=== PATIENT | female | born 1975 | race Caucasian/White ===

== ENCOUNTER 2016-10-05 19:33 | Emergency (ER) | payer MEDICAID ==
[2016-10-05] MEDS ORDERED: BENADRYL PO ONE ×2 (19:39→19:50)
[2016-10-05] MEDS ORDERED: PEPCID ONE (19:39)
[2016-10-05] MEDS ORDERED: PEPCID PO ONE (19:50)
[2016-10-05 19:58] VITALS: BP 132/82
--- NOTE | 2016-10-05 20:28 | Emergency Department Report ---
HPI - General Chief Complaint: Allergic Reaction Time Seen by Provider: 10/05/16 20:20 ED Past Medical Hx - Past Medical History Previous Medical History?: Yes Hx Hypertension: No Hx CVA: No Hx Heart Attack/AMI: No Hx Congestive Heart Failure: No Hx Diabetes: No Hx Deep Vein Thrombosis: No Hx Pulmonary Embolism: No Hx GERD: Yes Hx Liver Disease: No Hx Renal Disease: No Hx of Cancer: No Hx Sickle Cell Disease: No Hx Headaches / Migraines: No Hx Seizures: No Hx Kidney Stones: No Hx Psychiatric Treatment: No Hx Asthma: No Hx COPD: No Hx Tuberculosis: No Hx Dementia: No Hx HIV: No Additional medical history: Mass on lungs - Surgical History Past Surgical History?: Yes Hx Coronary Stent: No Hx Open Heart Surgery: No Hx Pacemaker: No Hx Internal Defibrillator: No Hx Cholecystectomy: Yes Hx Appendectomy: No Hx Breast Surgery: No Additional Surgical History: abdominal reconstruction, hernia repair x4 - Social History Smoking Status: Former Smoker Substance Use Type: None - Medications Home Medications: Home Medications Medication Instructions Recorded Confirmed Last Taken Type Oxycodone HCl/Acetaminophen 1 each PO Q6HR PRN #10 tablet 04/04/15 Unknown Rx [Percocet 2.5/325 mg] Pantoprazole [Protonix TAB] 40 mg PO BID #60 tablet 04/04/15 Unknown Rx ED Review of Systems ROS: Stated complaint: ALLERGIC REACTION TO SEAFOOD Other details as noted in HPI Physical Exam - Physical Exam Vital Signs: Vital Signs 10/05/16 10/05/16 10/05/16 19:37 19:47 19:58 Temperature 98.6 F Pulse Rate 86 86 Respiratory 15 18 18 Rate Blood Pressure 132/82 Blood Pressure 132/82 [Right] O2 Sat by Pulse 99 100 100 Oximetry ED Course Vital Signs 10/05/16 10/05/16 10/05/16 19:37 19:47 19:58 Temperature 98.6 F Pulse Rate 86 86 Respiratory 15 18 18 Rate Blood Pressure 132/82 Blood Pressure 132/82 [Right] O2 Sat by Pulse 99 100 100 Oximetry Critical care attestation.: If time is entered above; I have spent that time in minutes in the direct care of this critically ill patient, excluding procedure time. ED Disposition Condition: Stable Referrals: PRIMARY CARE, [Primary Care Provider] - 3-5 Days
--- NOTE | 2016-10-05 20:28 | Emergency Department Report ---
ED Allergic Reaction HPI - General Chief complaint: Allergic Reaction Stated complaint: ALLERGIC REACTION TO SEAFOOD Time Seen by Provider: 10/05/16 20:20 Source: patient Mode of arrival: Ambulatory Limitations: No Limitations - History of Present Illness Initial Comments: This is a 41-year-old female. She is previously unknown to me. She follows at the [facility]. She reports that she is not . She reports that she has a known seafood and shrimp allergy. She presents to the ER with her typical constellation of symptoms secondary to seafood allergy. She reports that she ate rice at approximately 5:00 PM, and then developed her typical symptoms, including right upper extremity itching and rash, and rash on her left buttock. There is no headache, neck pain, chest pain, abdominal pain, or shortness of breath. There is no stridor or dysphonia. MD Complaint: allergic reaction, hives -: Gradual, hour(s) Exposure: food Symptoms: rash, itching Severity: mild Treatment Prior to Arrival: none - Related Data Previous Rx's Medication Instructions Recorded Last Taken Type Oxycodone HCl/Acetaminophen 1 each PO Q6HR PRN #10 tablet 04/04/15 Unknown Rx [Percocet 2.5/325 mg] Pantoprazole [Protonix TAB] 40 mg PO BID #60 tablet 04/04/15 Unknown Rx EPINEPHrine [Epipen 2-Heath] 0.3 mg IM DAILY PRN #2 ml 10/05/16 Unknown Rx Famotidine [Pepcid] 20 mg PO BID #10 tablet 10/05/16 Unknown Rx diphenhydrAMINE [Benadryl] 50 mg PO Q8HR PRN #20 capsule 10/05/16 Unknown Rx predniSONE [Deltasone] 40 mg PO QDAY #8 tab 10/05/16 Unknown Rx Allergies Allergy/AdvReac Type Severity Reaction Status Date / Time latex Allergy Unknown Verified 04/03/15 22:46 ED Review of Systems ROS: Stated complaint: ALLERGIC REACTION TO SEAFOOD Other details as noted in HPI Constitutional: denies: fever Eyes: denies: eye discharge ENT: denies: throat pain, epistaxis, congestion Respiratory: denies: cough Cardiovascular: denies: chest pain Gastrointestinal: denies: abdominal pain Genitourinary: as per HPI Musculoskeletal: as per HPI Skin: rash, lesions Neurological: denies: weakness Psychiatric: as per HPI ED Past Medical Hx - Past Medical History Previous Medical History?: Yes Hx Hypertension: No Hx CVA: No Hx Heart Attack/AMI: No Hx Congestive Heart Failure: No Hx Diabetes: No Hx Deep Vein Thrombosis: No Hx Pulmonary Embolism: No Hx GERD: Yes Hx Liver Disease: No Hx Renal Disease: No Hx of Cancer: No Hx Sickle Cell Disease: No Hx Headaches / Migraines: No Hx Seizures: No Hx Kidney Stones: No Hx Psychiatric Treatment: No Hx Asthma: No Hx COPD: No Hx Tuberculosis: No Hx Dementia: No Hx HIV: No Additional medical history: Mass on lungs - Surgical History Past Surgical History?: Yes Hx Coronary Stent: No Hx Open Heart Surgery: No Hx Pacemaker: No Hx Internal Defibrillator: No Hx Cholecystectomy: Yes Hx Appendectomy: No Hx Breast Surgery: No Additional Surgical History: abdominal reconstruction, hernia repair x4 - Social History Smoking Status: Former Smoker Substance Use Type: None - Medications Home Medications: Home Medications Medication Instructions Recorded Confirmed Last Taken Type Oxycodone HCl/Acetaminophen 1 each PO Q6HR PRN #10 tablet 04/04/15 Unknown Rx [Percocet 2.5/325 mg] Pantoprazole [Protonix TAB] 40 mg PO BID #60 tablet 04/04/15 Unknown Rx EPINEPHrine [Epipen 2-Heath] 0.3 mg IM DAILY PRN #2 ml 10/05/16 Unknown Rx Famotidine [Pepcid] 20 mg PO BID #10 tablet 10/05/16 Unknown Rx diphenhydrAMINE [Benadryl] 50 mg PO Q8HR PRN #20 capsule 10/05/16 Unknown Rx predniSONE [Deltasone] 40 mg PO QDAY #8 tab 10/05/16 Unknown Rx ED Physical Exam - General Limitations: No Limitations General appearance: alert, in no apparent distress - Head Head exam: Present: atraumatic, normocephalic - Eye Eye exam: Present: normal appearance, EOMI. Absent: nystagmus - ENT ENT exam: Present: normal exam, normal orophraynx, mucous membranes moist, normal external ear exam, other (the patient is speaking in full sentences. There is no stridor or dysphonia.) - Neck Neck exam: Present: normal inspection, full ROM. Absent: tenderness, meningismus - Respiratory Respiratory exam: Present: normal lung sounds bilaterally. Absent: respiratory distress, wheezes, rales, rhonchi, stridor, chest wall tenderness, accessory muscle use, decreased breath sounds, prolonged expiratory - Cardiovascular Cardiovascular Exam: Present: regular rate, normal rhythm, normal heart sounds. Absent: bradycardia, tachycardia, irregular rhythm, systolic murmur, diastolic murmur, rubs, gallop - GI/Abdominal GI/Abdominal exam: Present: soft, normal bowel sounds. Absent: distended, tenderness, guarding, rebound, rigid, pulsatile mass - Extremities Exam Extremities exam: Present: full ROM, normal capillary refill, other (there is an urticarial rash noted on the right upper extremity and left gluteal cheek. During the gluteal examination, I am escorted by nurse Carey Geiger.). Absent: tenderness, pedal edema, joint swelling, calf tenderness - Back Exam Back exam: Present: normal inspection - Neurological Exam Neurological exam: Present: alert, oriented X3, normal gait, other (Extraocular movements intact. Tongue midline. No facial droop. Facial sensation intact to light touch in the V1, V2, V3 distribution bilaterally. 5 and 5 strength in 4 extremities.. Sensation is intact to light touch in 4 extremities.). Absent : motor sensory deficit - Psychiatric Psychiatric exam: Present: normal affect, normal mood - Skin Skin exam: Present: warm, rash, erythema, urticaria ED Course Vital Signs 10/05/16 10/05/16 10/05/16 19:37 19:47 19:58 Temperature 98.6 F Pulse Rate 86 86 Respiratory 15 18 18 Rate Blood Pressure 132/82 Blood Pressure 132/82 [Right] O2 Sat by Pulse 99 100 100 Oximetry - Reevaluation(s) Reevaluation #1: 10/05/16 22:18 patient is reassessed by me multiple times in the department. She is resting comfortably. No airway distress. The patient will be discharged at this time. ED Medical Decision Making - Lab Data Vital Signs 10/05/16 10/05/16 10/05/16 19:37 19:47 19:58 Temperature 98.6 F Pulse Rate 86 86 Respiratory 15 18 18 Rate Blood Pressure 132/82 Blood Pressure 132/82 [Right] O2 Sat by Pulse 99 100 100 Oximetry - Medical Decision Making Differential diagnosis: Urticaria, food allergy, mild allergic reaction Assessment and plan: 41-year-old female with mild allergic reaction. She is afebrile with reassuring vital signs, with no stridor or dysphonia or upper airway symptoms. She is treated with Pepcid, Benadryl and steroids. She is observed in the ER for a few hours. She did not experience any airway decompensation. She will be discharged with the same medications, epinephrine pen, and she is instructed to avoid exposure and consumption of seafood. Critical care attestation.: If time is entered above; I have spent that time in minutes in the direct care of this critically ill patient, excluding procedure time. ED Disposition Clinical Impression: Seafood allergy Disposition: [id number] TO HOME OR SELFCARE Is pt being admited?: No Does the pt Need Aspirin: No Condition: Stable Instructions: Urticaria (ED) Additional Instructions: Take the medications as directed. Avoid consumption of seafood and shellfish. Follow up with your primary care physician within the next week. Do not use the epinephrine pen unless he developed inability to speak, inability to breathe , and inability to talk. If he develops any of those symptoms, take the epinephrine pen, and contact 911 and return to the ER right away. Prescriptions: diphenhydrAMINE [Benadryl] 50 mg PO Q8HR PRN #20 capsule PRN Reason: Allergic Reaction EPINEPHrine [Epipen 2-Heath] 0.3 mg IM DAILY PRN #2 ml PRN Reason: Allergic Reaction Famotidine [Pepcid] 20 mg PO BID #10 tablet predniSONE [Deltasone] 40 mg PO QDAY #8 tab Referrals: PRIMARY MD OK [Primary Care Provider] - 3-5 Days MARZENA INGRAM MD [Staff Physician] - 3-5 Days
[2016-10-05] MEDS ORDERED: APRESOLINE ONE ×2 (21:08)
== END 2016-10-05 22:30 | disposition home or self-care (01) ==
LOC: ED 19:33
DX: T78.1XXA Other adverse food reactions, not elsewhere classified, initial encounter (principal); X58.XXXA Exposure to other specified factors, initial encounter; K21.9 Gastro-esophageal reflux disease without esophagitis
CPT/HCPCS: 96374; 99283; J2930

== ENCOUNTER 2016-11-11 19:18 | Emergency (ER) | payer MEDICAID ==
--- NOTE | 2016-11-11 19:43 | Emergency Department Report ---
HPI - General Chief Complaint: Allergic Reaction Time Seen by Provider: 11/11/16 19:43 - HPI HPI: Patient here reports that she ate [employer] chicken but think that they used all of that they used to tucker fish and shrimp in the Wednesday chicken N and 45 minutes after eating and she has hives and itching this was at 6 PM. She states she used her EpiPen at 6:30 PM because she is allergic to shellfish. She states that she has hives and itching. Denies any shortness of breath or chest pain. Denies any soreness tongue or difficulty swallowing. She has had similar incident in the past. She denies any pain. Denies any cough, stridor or wheezing. ED Past Medical Hx - Past Medical History Previous Medical History?: Yes Hx Hypertension: No Hx CVA: No Hx Heart Attack/AMI: No Hx Congestive Heart Failure: No Hx Diabetes: No Hx Deep Vein Thrombosis: No Hx Pulmonary Embolism: No Hx GERD: Yes Hx Liver Disease: No Hx Renal Disease: No Hx Sickle Cell Disease: No Hx Headaches / Migraines: No Hx Seizures: No Hx Kidney Stones: No Hx Psychiatric Treatment: No Hx Asthma: No Hx COPD: No Hx Tuberculosis: No Hx Dementia: No Hx HIV: No Additional medical history: Mass on lungs - Surgical History Past Surgical History?: Yes Hx Coronary Stent: No Hx Open Heart Surgery: No Hx Pacemaker: No Hx Internal Defibrillator: No Hx Cholecystectomy: Yes Hx Appendectomy: No Hx Breast Surgery: No Additional Surgical History: abdominal reconstruction, hernia repair x4 - Family History Family history: hypertension - Social History Smoking Status: Never Smoker Substance Use Type: None - Medications Home Medications: Home Medications Medication Instructions Recorded Confirmed Last Taken Type EPINEPHrine [Epipen 2-Heath] 0.3 mg IM DAILY PRN #2 ml 11/11/16 Unknown Rx Famotidine [Pepcid] 20 mg PO BID #10 tablet 11/11/16 Unknown Rx diphenhydrAMINE [Benadryl CAP] 50 mg PO Q8HR PRN #15 capsule 11/11/16 Unknown Rx methylPREDNISolone [Medrol] 4 mg PO QAM #1 tab.ds.pk 11/11/16 Unknown Rx ED Review of Systems ROS: Stated complaint: allergic reaction Other details as noted in HPI Comment: All other systems reviewed and negative Constitutional: denies: chills, fever ENT: denies: ear pain, throat pain, congestion Respiratory: no symptoms reported Cardiovascular: denies: chest pain, palpitations, edema, syncope Gastrointestinal: denies: abdominal pain, nausea, vomiting Musculoskeletal: denies: arthralgia, myalgia Skin: rash, pruritus Neurological: denies: headache, numbness, paresthesias, confusion Physical Exam - Physical Exam Vital Signs: Vital Signs 11/11/16 19:26 Temperature 98.5 F Pulse Rate 87 Respiratory 20 Rate Blood Pressure 114/69 O2 Sat by Pulse 99 Oximetry General: This is a 41-year-old female well-nourished well-developed in no acute distress. Physical Exam: Head: Normocephalic, atraumatic. No abrasions, laceration or contusion Neck: Supple, no adenopathy. Full range of motion. No C-spine tenderness. No muscular tenderness. No enlarged lymph nodes. No tracheal deviation. Mouth: Moist, no pharyngeal exudate or erythema. Uvula is midline and oral airways patent. Tongue is normal. No trismus. No peritonsillar abscess. Ear: Bilateral TMs pearly campos, bilateral EAC without any redness swelling or drainage. Bilateral tract is nontender to palpate. Abdomen: Nontender the palpation in all quadrants, no guarding or rebound tenderness. No CVA tenderness and normal bowel sounds in all quadrants. Extremity: No clubbing, cyanosis or edema. +2 pulses in all extremities. No neurovascular compromise. Capillary refill is less than 3 seconds. Good color , sensation, movement and temperature in all extremities. Skin: Noted urticaria areas to posterior and anterior thorax sparsely scattered. PSYCH: Normal mood and behavior. Neurological: GCS of 15, speech is clear and fluid, alert and oriented 3. Normal gait, negative Romberg and negative pronator drift. No motor or sensory deficit. Back: No vertebral tenderness, no paraspinal tenderness, no saddle anesthesia,. Patient able to relate without any difficulties. ED Course Vital Signs 11/11/16 19:26 Temperature 98.5 F Pulse Rate 87 Respiratory 20 Rate Blood Pressure 114/69 O2 Sat by Pulse 99 Oximetry - Reevaluation(s) Reevaluation #1: 11/11/16 20:00 Patient took EpiPen at 6:30 PM. She was given Solu-Medrol 125 mg IM in emergency room along with Pepcid 40 mg by mouth. 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 Reevaluation #2: 11/11/16 20:26 Patient is stable rash is clearing after Solu-Medrol. ED Medical Decision Making - Medical Decision Making ED course: Patient with minor allergic reaction after eating in fried chicken that was exposed to shellfish grease which she is allergic to. She gave herself an EpiPen and took Benadryl prior to coming to the hospital. She was given Solu-Medrol 125 mg IM and Pepcid 40 mg by mouth. Urticarial rash localized to posterior and anterior thorax. No respiratory involvement. Patient discharged home with prescription for Medrol Dosepak, Benadryl when necessary and EpiPen. I discussed with her that if her rash reappears and if she develops respiratory symptoms she is to return to the emergency room [facility]. Critical care attestation.: If time is entered above; I have spent that time in minutes in the direct care of this critically ill patient, excluding procedure time. ED Disposition Clinical Impression: Urticaria due to food allergy, Pruritic dermatitis Minor allergic reaction Qualifiers: Encounter type: initial encounter Qualified Code(s): T78.40XA - Allergy, unspecified, initial encounter Disposition: - TO HOME OR SELFCARE Is pt being admited?: No Does the pt Need Aspirin: No Condition: Stable Instructions: Urticaria (ED), Allergies (ED), Food Allergy (ED) Additional Instructions: Please take Medrol Dosepak If you're allergic reaction symptoms come back or progressive please return to the emergency room [facility] Please do not take Benadryl while driving or operating heavy machinery of this medication will cause drowsiness If you develop swollen tongue, hoarse voice, itch into throat, wheezing, stridor and increase in rash please return to the emergency room otherwise follow-up with your primary care physician in 24 hours if you do not have a primary care physician follow-up at [facility]. Prescriptions: diphenhydrAMINE [Benadryl CAP] 50 mg PO Q8HR PRN #15 capsule PRN Reason: Allergic Reaction EPINEPHrine [Epipen 2-Heath] 0.3 mg IM DAILY PRN #2 ml PRN Reason: Allergic Reaction Famotidine [Pepcid] 20 mg PO BID #10 tablet methylPREDNISolone [Medrol] 4 mg PO QAM #1 tab.ds.pk Referrals: [facility] [Outside] - 11/12/16 PRIMARY CAREMD [Primary Care Provider] - 11/12/16 Forms: Work/School Release Form(ED)
[2016-11-11] MEDS ORDERED: PEPCID PO ONE (19:45)
[2016-11-11 20:54] VITALS: BP 143/92
== END 2016-11-11 20:52 | disposition home or self-care (01) ==
LOC: ED 19:18
DX: L50.0 Allergic urticaria (principal); L30.8 Other specified dermatitis; T78.40XA Allergy, unspecified, initial encounter; Y92.9 Unspecified place or not applicable
CPT/HCPCS: 96372; 99282; J2930